=== PATIENT | female | born 1970 | race Hispanic/Latino ===

== ENCOUNTER 2017-11-12 09:40 | Emergency (ER) | payer BC ==
--- OUTSIDE RECORDS SUMMARY | 2017-11-12 09:43 | XMS REPORT ---
:1970 Author Organization eClinicalWorks Care Team Providers Name Role Phone Angel Kumar Provider Role Unavailable Allergies, Adverse Reactions, Alerts Substance Reaction Event Type N.K.D.A. Info Not Available Non Drug Allergy Problems Problem Type Condition Code Onset Dates Condition Status Problem Acute pain of right knee M25.561 Active Problem Sciatica of right side M54.31 Active Assessment Effusion, right knee M25.461 Active Assessment Acute pain of right knee M25.561 Active Assessment Sciatica of right side M54.31 Active Medications Medication Code Code Instructions Start End Status Dosage System Date Date Pseudoeph-Bromp [facility] 04875455629 30-2-10 MG/5ML Active TK 5 ML PO hen-DM Oral Q 4 TO 6 H PRN Lisinopril [facility] 72789414823 20 MG Oral Active TK 1 T PO QD PredniSONE ND 12659099440 20 MG Oral Active TK 1 T PO BID FOR 3 DAYS THEN TK 1 T PO D Azithromycin ND 13627463014 250 MG Oral Active not defined Tramadol HCl ND 73320980787 50 MG Orally November 01October Inactive 1 tablet every 6 hrs 2017 17, as needed 2017 Tylenol # 3 NDC 0 300/30mg PO 4-6 November 01, Dec 01, Active one tab HRS PRN PAIN 2017 2017 Meloxicam ND 96469405117 15 MG Oral Active TK 1 T PO QD Indomethacin ER ND 03136263979 75 MG Oral Active TK ONE C PO QD FOR 2 WEEKS PRN P Results No Known Results Summary Purpose eClinicalWorks Submission
--- OUTSIDE RECORDS SUMMARY | 2017-11-12 09:43 | XMS REPORT ---
:1970 Author Organization eClinicalWorks Care Team Providers Name Role Phone Angel Kumar Provider Role Unavailable Allergies No Known Allergies Problems Problem Type Condition Code Onset Dates Condition Status Problem Acute pain of right knee M25.561 Active Problem Sciatica of right side M54.31 Active Medications No Known Medications Results No Known Results Summary Purpose eClinicalWorks Submission
[2017-11-12] MEDS ORDERED: KETOROLAC 30 MG/ML INJ ONE (10:52)
[2017-11-12] MEDS ORDERED: CYCLOBENZAPRINE 10 MG TAB ONE (10:52)
[2017-11-12 11:02] LABS: Urine Blood NEGATIVE (NEG); Urine Glucose NEGATIVE (NEG); Urine Protein NEGATIVE (NEG); Urine Specific Gravity 1.025 (1.005-1.030); Urine pH 6.5 (5.0-7.0)
--- NOTE | 2017-11-12 11:57 | ER ---
Nurse's Notes [facility] Name: Rachelle Rice Age: 47 yrs Sex: Female : 1970 Arrival Date: 11/12/2017 Time: 09:42 Bed 14 Private MD: Nolberto Alvarado Diagnosis: Low back pain Presentation: 11/12 09:51 Presenting complaint: Patient states: Left lower back pain that started yesterday. aj Patient reports pain shoots down left leg. Transition of care: patient was not received from another setting of care. Onset of symptoms was November 11, 2017. Risk Assessment: Do you want to hurt yourself or someone else? Patient reports no desire to harm self or others. Initial Sepsis Screen: Does the patient meet any 2 criteria? No. Patient's initial sepsis screen is negative. Does the patient have a suspected source of infection? No. Patient's initial sepsis screen is negative. Care prior to arrival: None. 09:51 Method Of Arrival: Ambulatory 09:51 Acuity: BENEDICTO 4 aj Triage Assessment: 09:52 General: Appears in no apparent distress. comfortable, Behavior is calm, cooperative, aj appropriate for age. Pain: Complains of pain in coccyx, left lower back, left gluteus paola and left gluteal fold. Neuro: Level of Consciousness is awake, alert, obeys commands, Oriented to person, place, time, situation, Appropriate for age. Respiratory: Airway is patent Respiratory effort is even, unlabored, Respiratory pattern is regular, symmetrical. : No signs and/or symptoms were reported regarding the genitourinary system. Derm: Skin is intact, is healthy with good turgor, Skin is pink, warm \T\ dry. normal. Musculoskeletal: Circulation, motion, and sensation intact. 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 - Social history:: Smoking status: Patient/guardian denies using tobacco. - Ebola Screening: : Patient negative for fever greater than or equal to 101.5 degrees Fahrenheit, and additional compatible Ebola Virus Disease symptoms Patient denies exposure to infectious person Patient denies travel to an Ebola-affected area in the 21 days before illness onset No symptoms or risks identified at this time. Screenin:56 Abuse screen: Denies threats or abuse. Nutritional screening: No deficits noted. rb1 Tuberculosis screening: No symptoms or risk factors identified. Fall Risk None identified. Assessment: 09:56 General: Appears uncomfortable, obese, Behavior is calm, cooperative. Pain: Complains rb1 of pain in left lower back Pain radiates to left leg Pain currently is 10 out of 10 on a pain scale. Neuro: Level of Consciousness is awake, alert, obeys commands, Oriented to person, place, time, situation. Cardiovascular: Capillary refill < 3 seconds is brisk in bilateral toes. Respiratory: Airway is patent Respiratory effort is even, unlabored, Respiratory pattern is regular, symmetrical. GI: No signs and/or symptoms were reported involving the gastrointestinal system. : No signs and/or symptoms were reported regarding the genitourinary system. Derm: Skin is pink, warm \T\ dry. Musculoskeletal: Range of motion: intact in all extremities. 10:56 Reassessment: Patient appears in no apparent distress at this time. No changes from rb1 previously documented assessment. Family at bedside. 11:53 Reassessment: Patient appears in no apparent distress at this time. Patient and/or rb1 family updated on plan of care and expected duration. Pain level reassessed. Patient is alert, oriented x 3, equal unlabored respirations, skin warm/dry/pink. Family at bedside. Vital Signs: 09:52 BP 124 / 83; Pulse 80; Resp 20; Temp 97.3; Pulse Ox 96% on R/A; Weight 107.95 kg; aj Height 5 ft. 3 in. (160.02 cm); 10:52 BP 105 / 44; Pulse 71; Resp 19; Pulse Ox 96% on R/A; rb1 11:50 BP 113 / 63; Pulse 69; Resp 19; Pulse Ox 97% on R/A; Pain 6/10; rb1 09:52 Body Mass Index 42.16 (107.95 kg, 160.02 cm) aj ED Course: 09:42 Patient arrived in ED. as 09:42 Nolberto Alvarado MD is Private Physician. as 09:52 Triage completed. aj 09:52 Arm band placed on right wrist. Patient placed in an exam room. aj 09:54 Maria Luz Lopez, RN is Primary Nurse. rb1 09:56 Patient has correct armband on for positive identification. Placed in gown. Bed in low rb1 position. Call light in reach. Side rails up X 1. Pulse ox on. NIBP on. 10:02 Farideh Green NP is PHCP. rh1 10:03 Bong Moeller MD is Attending Physician. rh1 11:56 Nolberto Alvarado MD is Referral Physician. rh1 12:07 No provider procedures requiring assistance completed. Patient did not have IV access rb1 during this emergency room visit. Administered Medications: 10:40 Drug: Ketorolac 60 mg Route: IM; Site: left gluteus; rb1 11:10 Follow up: Response: No adverse reaction; Pain is decreased rb1 10:40 Drug: Flexeril 10 mg Route: PO; rb1 11:10 Follow up: Response: No adverse reaction; Pain is decreased rb1 Outcome: 11:56 Discharge ordered by MD. rh1 12:07 Patient left the ED. rb1 12:07 Discharged to home ambulatory, with family. rb1 12:07 Condition: stable 12:07 Discharge instructions given to patient, Instructed on discharge instructions, follow up and referral plans. medication usage, Demonstrated understanding of instructions, follow-up care, medications, Prescriptions given X 1. Signatures: Libia Acosta, RN RN Kari Gillespie as Farideh Green, [employer] rh1 Maria Luz Lopez, RN RN [facility]
--- NOTE | 2017-11-12 11:57 | EDPHYS ---
Physician Documentation [facility] Name: Rachelle Rice Age: 47 yrs Sex: Female : 1970 Arrival Date: 11/12/2017 Time: 09:42 Bed 14 Private MD: Nolberto Alvarado ED Physician Bong Moeller HPI: 11/12 10:04 This 47 yrs old Female presents to ER via Ambulatory with complaints of Back rh1 Pain. 10:04 The patient presents with pain that is acute, with no known mechanism of injury, and rh1 decreased range of motion, and spasm, stiffness, tightness. The symptoms are located in the low back. Onset: The symptoms/episode began/occurred yesterday. The pain radiates to the left leg and buttocks and left gluteus paola. Associated signs and symptoms: Pertinent negatives: abdominal pain, dysuria, fever, hematuria, incontinence, nausea, numbness, tingling, urinary retention, vomiting, weakness. The problem was sustained from unknown cause. Modifying factors: The patient symptoms are alleviated by specific position, standing, the patient symptoms are aggravated by movement. Severity of symptoms: At their worst the symptoms were moderate, in the emergency department the symptoms are unchanged. The patient has not experienced similar symptoms in the past. The patient has not recently seen a physician. PT. began with left lower back pain yesterday, while doing dishes. Her pain is improved with standing, and worse with movement, laying, sitting. Denies any trauma. No fever/chills, saddle/lower extremity paresthesias, weakness, N/V, abdominal pain, urinary symptoms.. [employer]OTE[employer] SPECIALIST: 09:52 LMP N/A - Post-menopause aj Historical: - Allergies: 09:52 No Known Allergies; aj - Home Meds: 09:52 Lisinopril Oral [Active]; aj - PMHx: 09:52 Hypertension; aj - PSHx: 09:52 Cholecystectomy; aj - Immunization history:: Adult Immunizations up to date. - Social history:: Smoking status: Patient/guardian denies using tobacco. - Ebola Screening: : Patient negative for fever greater than or equal to 101.5 degrees Fahrenheit, and additional compatible Ebola Virus Disease symptoms Patient denies exposure to infectious person Patient denies travel to an Ebola-affected area in the 21 days before illness onset No symptoms or risks identified at this time. ROS: 10:04 Constitutional: Negative for fever, chills, and weight loss. rh1 10:04 Abdomen/GI: Negative for abdominal pain, nausea, vomiting, and diarrhea. 10:04 Back: Positive for decreased range of motion, pain with movement. 10:04 : Negative for urinary symptoms, small amounts, burning with urination. 10:04 MS/extremity: Positive for pain, Negative for decreased range of motion, paresthesias, swelling, tenderness. 10:04 Neuro: Negative for numbness, tingling, weakness. 10:04 All other systems are negative. Exam: 10:04 Constitutional: This is a well developed, well nourished patient who is awake, alert, rh1 and in no acute distress. Head/Face: Normocephalic, atraumatic. Neck: Trachea midline, and no cervical lymphadenopathy. Supple, full range of motion without nuchal rigidity. No Meningismus. Chest/axilla: Normal chest wall appearance and motion. Nontender with no deformity. No lesions are appreciated. Cardiovascular: Regular rate and rhythm with a normal S1 and S2. No gallops, murmurs, or rubs. No JVD. No pulse deficits. Respiratory: Lungs have equal breath sounds bilaterally, clear to auscultation. No rales, rhonchi or wheezes noted. No increased work of breathing. Abdomen/GI: Soft, non-tender, with normal bowel sounds. No distension. No guarding or rebound. No evidence of tenderness throughout. 10:04 MS/ Extremity: Pulses equal, no cyanosis. Neurovascular intact. Full, normal range of motion. 10:04 Skin: Warm, dry with normal turgor. Normal color with no rashes, no lesions, and no evidence of cellulitis. 10:04 Abdomen/GI: Inspection: bruising, is not seen. 10:04 Back: Exam negative for decreased ROM, pain, that is moderate, of the left low back and left mid back, ROM is painful, with flexion, with extension, CVA tenderness, is absent, vertebral tenderness, is not appreciated, muscle spasm, is appreciated in the left low back, Straight leg raises: right lower extremity does not illicit pain, left lower extremity illicits pain. 10:04 Neuro: Orientation: is normal, to person, place \T\ time. Mentation: is normal, lucid, able to follow commands, Motor: is normal, moves all fours, strength is 5/5 in all extremities, dorsi/plantar flexion 5/5 bilaterally, Sensation: is normal, no obvious gross deficits, numbness, is not appreciated, tingling, is not appreciated, Gait: is steady, at a normal pace, without difficulty, Deep tendon reflexes are 2+ (normal) in the right patellar, right Achilles, left patellar and left Achilles. Vital Signs: 09:52 BP 124 / 83; Pulse 80; Resp 20; Temp 97.3; Pulse Ox 96% on R/A; Weight 107.95 kg; aj Height 5 ft. 3 in. (160.02 cm); 10:52 BP 105 / 44; Pulse 71; Resp 19; Pulse Ox 96% on R/A; rb1 11:50 BP 113 / 63; Pulse 69; Resp 19; Pulse Ox 97% on R/A; Pain 6/10; rb1 09:52 Body Mass Index 42.16 (107.95 kg, 160.02 cm) aj MDM: 10:04 Patient medically screened. rh1 11:55 Data reviewed: vital signs, nurses notes, lab test result(s), and as a result, I will 1 discharge patient. Data interpreted: Pulse oximetry: on room air is 96 %. Interpretation: normal. Counseling: I had a detailed discussion with the patient and/or guardian regarding: the historical points, exam findings, and any diagnostic results supporting the discharge/admit diagnosis, lab results, the need for outpatient follow up, a family practitioner, to return to the emergency department if symptoms worsen or persist or if there are any questions or concerns that arise at home. Response to treatment: the patient's symptoms have markedly improved after treatment, and as a result, I will discharge patient. 11/12 10:50 Order name: Urine Dipstick--Ancillary (enter results); Complete Time: : eb 11/12 10:50 Order name: Urine --Ancillary (enter results); Complete Time: : eb 11/12 10:29 Order name: Urine Dipstick-Ancillary (obtain specimen); Complete Time: 11:03 rh1 11/12 10:29 Order name: Urine Test (obtain specimen); Complete Time: 11:03 rh1 Administered Medications: 10:40 Drug: Ketorolac 60 mg Route: IM; Site: left gluteus; rb1 11:10 Follow up: Response: No adverse reaction; Pain is decreased rb1 10:40 Drug: Flexeril 10 mg Route: PO; rb1 11:10 Follow up: Response: No adverse reaction; Pain is decreased rb1 Disposition: 15:57 Co-signature as Attending Physician, Bong Moeller MD I agree with the assessment and kdr plan of care. Disposition: 11/12/17 11:56 Discharged to Home. Impression: Low back pain. - Condition is Stable. - Discharge Instructions: Back Pain, Adult, Sciatica. - Prescriptions for Cyclobenzaprine 10 mg Oral Tablet - take 1 tablet by ORAL route every 8 hours As needed; 30 tablet. - Medication Reconciliation Form, Thank You Letter, Antibiotic Education, Prescription Opioid Use form. - Follow up: Nolberto Alvarado MD; When: 1 - 2 days; Reason: Recheck today's complaints, Continuance of care, Re-evaluation by your physician. Follow up: Emergency Department; When: As needed; Reason: Fever > 102 F, If symptoms return, Trouble breathing, Worsening of condition. - Problem is new. - Symptoms have improved. Signatures: Dispatcher [employer] EDMS Libia Acosta RN RN aj Rittger, Kevin, MD MD [facility] Farideh Green NP RETRIMMER rh1 Maria Luz Lopez, RN RN rb1 Corrections: (The following items were deleted from the chart) 12:07 11:56 11/12/2017 11:56 Discharged to Home. Impression: Low back pain. Condition is rb1 Stable. Forms are Medication Reconciliation Form, Thank You Letter, Antibiotic Education, Prescription Opioid Use. Follow up: Nolberto Alvarado; When: 1 - 2 days; Reason: Recheck today's complaints, Continuance of care, Re-evaluation by your physician. Follow up: Emergency Department; When: As needed; Reason: Fever > 102 F, If symptoms return, Trouble breathing, Worsening of condition. Problem is new. Symptoms have improved. rh1
== END 2017-11-12 12:07 | disposition home or self-care (01) ==
LOC: ER 09:40
DX: M54.5 Low back pain (principal); I10 Essential (primary) hypertension
CPT/HCPCS: 81003; 81025; 96372; 99283

== ENCOUNTER 2018-05-14 14:17 | Emergency (ER) | payer BC ==
--- OUTSIDE RECORDS SUMMARY | 2018-05-14 14:19 | XMS REPORT ---
[...] End Status Dosage System Date Date Pseudoeph-Bromp [facility] 80874073932 30-2-10 MG/5ML Active TK 5 ML PO hen-DM Oral Q 4 TO 6 H PRN Lisinopril [facility] 23636046586 20 MG Oral Active TK 1 T PO QD PredniSONE ND 55627135359 20 MG Oral Active TK 1 T PO BID FOR 3 DAYS THEN TK 1 T PO D Azithromycin ND 77544736270 250 MG Oral Active not defined Tramadol HCl ND 18387427610 50 MG Orally November 01October Inactive 1 tablet every 6 hrs 2017 17, as needed 2017 Tylenol # 3 NDC 0 300/30mg PO 4-6 November 01, Dec 01, Active one tab HRS PRN PAIN 2017 2017 Meloxicam ND 61612867389 15 MG Oral Active TK 1 T PO QD Indomethacin ER ND 15369214075 75 MG Oral Active TK ONE C PO QD FOR 2 WEEKS PRN P Results No Known Results Summary Purpose eClinicalWorks Submission
--- OUTSIDE RECORDS SUMMARY | 2018-05-14 14:20 | XMS REPORT ---
:1970 Author Organization eClinicalWorks Care Team Providers Name Role Phone Angel Kumar Provider Role Unavailable Allergies, Adverse Reactions, Alerts Substance Reaction Event Type N.K.D.A. Info Not Available Non Drug Allergy Problems Problem Type Condition Code Onset Dates Condition Status Assessment Right sided sciatica M54.31 Active Assessment Pain in right knee M25.561 Active Assessment Other chronic pain G89.29 Active Assessment Effusion of right knee M25.461 Active Problem Other chronic pain G89.29 Active Problem Effusion of right knee M25.461 Active Problem Pain in right knee M25.561 Active Problem Sciatica of right side M54.31 Active Problem Right sided sciatica M54.31 Active Problem Acute pain of right knee M25.561 Active Medications Medication Code Code Instructions Start End Status Dosage System Date Date Pseudoeph-Bromph [facility] 86134634656 30-2-10 MG/5ML Active TK 5 ML PO en-DM Oral Q 4 TO 6 H PRN Azithromycin [facility] 94788390732 250 MG Oral Active not defined PredniSONE [facility] 74354879639 20 MG Oral Active TK 1 T PO BID FOR 3 DAYS THEN TK 1 T PO D Indomethacin ER [facility] 75485492686 75 MG Oral Active TK ONE C PO QD FOR 2 WEEKS PRN P Lisinopril [facility] 28796665397 20 MG Oral Active TK 1 T PO QD Meloxicam [facility] 71538570862 15 MG Oral Active TK 1 T PO QD Results No Known Results Summary Purpose eClinicalWorks Submission
--- OUTSIDE RECORDS SUMMARY | 2018-05-14 14:20 | XMS REPORT ---
:1970 Author Organization eClinicalWorks Care Team Providers Name Role Phone Angel Kumar Provider Role Unavailable Allergies, Adverse Reactions, Alerts Substance Reaction Event Type N.K.D.A. Info Not Available Non Drug Allergy Problems Problem Type Condition Code Onset Dates Condition Status Assessment Other chronic pain G89.29 Active Assessment Effusion of right knee M25.461 Active Assessment Pain in right knee M25.561 Active Assessment Right sided sciatica M54.31 Active Problem Other chronic pain G89.29 Active Problem Effusion of right knee M25.461 Active Problem Pain in right knee M25.561 Active Problem Sciatica of right side M54.31 Active Problem Right sided sciatica M54.31 Active Problem Acute pain of right knee M25.561 Active Medications Medication Code Code Instructions Start End Status Dosage System Date Date Meloxicam [facility] 35858389286 15 MG Oral Active TK 1 T PO QD PredniSONE [facility] 08624708509 20 MG Oral Active TK 1 T PO BID FOR 3 DAYS THEN TK 1 T PO D Pseudoeph-Bromph [facility] 96611122060 30-2-10 MG/5ML Active TK 5 ML PO en-DM Oral Q 4 TO 6 H PRN Lisinopril [facility] 15220821514 20 MG Oral Active TK 1 T PO QD Indomethacin ER [facility] 89686001038 75 MG Oral Active TK ONE C PO QD FOR 2 WEEKS PRN P Azithromycin [facility] 92200526388 250 MG Oral Active not defined Results No Known Results Summary Purpose eClinicalWorks Submission
[2018-05-14] MEDS ORDERED: KETOROLAC 30 MG/ML INJ ONE (14:52)
--- NOTE | 2018-05-14 15:21 | RAD REPORT ---
EXAM DESCRIPTION: CT - Stone Protocol - 05/14/2018 3:05 pm CLINICAL HISTORY: Abdominal pain. Left flank pain COMPARISON: 2016 TECHNIQUE: Computed axial tomography of the abdomen pelvis was obtained without oral or IV contrast. Lack of IV and oral contrast limits evaluation of solid organs, bowel, and vessels. Coronal reformat rosibel images were obtained and reviewed. All CT scans are performed using dose optimization technique as appropriate and may include automated exposure control or mA/KV adjustment according to patient size. FINDINGS: A renal calculus is not seen. An ureteral calculus is not noted. A bladder calculus is not present. Fatty liver. Gallbladder has been removed Spleen, pancreas and adrenals appear grossly normal There is no evidence of diverticulitis. An adnexal mass is not noted. Small umbilical hernia contains fat IMPRESSION: Negative for a genitourinary calculus
--- NOTE | 2018-05-14 15:23 | ER ---
Nurse's Notes [facility] Name: Rachelle Rice Age: 47 yrs Sex: Female : 1970 Arrival Date: 05/14/2018 Time: 14:20 Bed 18 Private MD: Nolberto Alvarado Diagnosis: Low back pain Presentation: 05/14 14:24 Presenting complaint: Patient states: I have had problems with sciatica on the left la1 side about year ago but three days ago a similar pain started on the right but it is worse. Transition of care: patient was not received from another setting of care. Onset of symptoms was May 14, 2018. Risk Assessment: Do you want to hurt yourself or someone else? Patient reports no desire to harm self or others. Initial Sepsis Screen: Does the patient meet any 2 criteria? No. Patient's initial sepsis screen is negative. Does the patient have a suspected source of infection? No. Patient's initial sepsis screen is negative. Care prior to arrival: None. 14:24 Method Of Arrival: Ambulatory la1 14:24 Acuity: BENEDICTO 3 la1 Historical: - Allergies: 14:26 No Known Allergies; la1 - Home Meds: 14:26 lisinopril Oral [Active]; gabapentin oral oral [Active]; la1 - PMHx: 14:26 Hypertension; la1 - PSHx: 14:26 None; la1 - Immunization history:: Adult Immunizations up to date. - Social history:: Smoking status: Patient/guardian denies using tobacco. - Ebola Screening: : No symptoms or risks identified at this time. Screenin:36 Abuse screen: Denies threats or abuse. Nutritional screening: No deficits noted. em Tuberculosis screening: No symptoms or risk factors identified. Fall Risk None identified. Assessment: 14:36 General: Appears in no apparent distress. uncomfortable, Behavior is calm, cooperative, em Denies fever. Pain: Complains of pain in right flank Pain currently is 10 out of 10 on a pain scale. Quality of pain is described as sharp, Pain began 2-3 days ago. Neuro: Level of Consciousness is awake, alert, obeys commands, Oriented to person, place, time, situation, Gait is steady, Speech is normal, Intact. Cardiovascular: Patient's skin is warm and dry. Respiratory: Airway is patent Respiratory effort is even, unlabored, Respiratory pattern is regular, symmetrical. GI: Abdomen is obese, Abd is soft and non tender X 4 quads. Patient currently denies abdominal pain, nausea, vomiting. : Urine is clear, Denies burning with urination, discharge, urgency, vaginal bleeding. Derm: Skin is intact, is healthy with good turgor, Skin is pink, warm \T\ dry. Musculoskeletal: Range of motion: intact in all extremities. Injury Description: denies trauma. 14:45 Reassessment: I agree with previous assessment. hb 15:44 Reassessment: Patient appears in no apparent distress at this time. Patient and/or em family updated on plan of care and expected duration. Pain level reassessed. Patient is alert, oriented x 3, equal unlabored respirations, skin warm/dry/pink. rates pain 7/10 Patient states feeling better. Vital Signs: 14:25 BP 124 / 67; Pulse 81; Resp 18; Temp 97.8; Pulse Ox 98% on R/A; Weight 102.06 kg; la1 Height 5 ft. 3 in. (160.02 cm); 14:25 Body Mass Index 39.86 (102.06 kg, 160.02 cm) la1 ED Course: 14:20 Patient arrived in ED. mr 14:20 Nolberto Alvarado MD is Private Physician. mr 14:21 [facility] Crawford [facility]C [facility]. kb 14:21 Philippe Bowman MD is Attending Physician. kb 14:25 Triage completed. la1 14:25 Arm band placed on left wrist. la1 14:36 Patient has correct armband on for positive identification. Bed in low position. Call em light in reach. Pulse ox on. NIBP on. 14:47 Seth Parker LVN is Primary Nurse. em 15:03 CT completed. Patient tolerated procedure well. Patient moved back from CT. bq 15:05 CT Stone Protocol In Process Unspecified. EDMS 15:44 No provider procedures requiring assistance completed. Patient did not have IV access em during this emergency room visit. Administered Medications: 14:47 Drug: TORadol 60 mg Route: IM; Site: right gluteus; em 15:45 Follow up: Response: No adverse reaction; Pain is decreased em Outcome: 15:23 Discharge ordered by . kb 15:44 Discharged to home ambulatory, with family. em 15:44 Condition: good 15:44 Discharge instructions given to patient, family, Instructed on discharge instructions, follow up and referral plans. medication usage, Demonstrated understanding of instructions, follow-up care, medications, Prescriptions given X 2. 15:45 Patient left the ED. em Signatures: Dispatcher [employer] EDPR Shira Crawford, PROFESSIONAL ATHLETE-C PROFESSIONAL ATHLETE-Cecelia Story mr Yi Quinonez Edgar, A P MANAGER A P MANAGER em Derick Mondragon, RN RN la1 Lori Hansen, RN RN hb
--- NOTE | 2018-05-14 15:23 | EDPHYS ---
Physician Documentation [facility] Name: Rachelle Rice Age: 47 yrs Sex: Female : 1970 Arrival Date: 05/14/2018 Time: 14:20 Bed 18 Private MD: Nolberto Alvarado ED Physician Philippe Bowman HPI: 05/14 14:37 This 47 yrs old Female presents to ER via Ambulatory with complaints of Back kb Pain. 14:37 The patient complains of pain in the right flank. The pain does not radiate. Onset: The kb symptoms/episode began/occurred 3 day(s) ago. Modifying factors: The symptoms are alleviated by nothing. the symptoms are aggravated by movement, palpation/percussion. Associated signs and symptoms: The patient has no apparent associated signs or symptoms. Severity of pain: At its worst the pain was moderate in the emergency department the pain is unchanged. The patient has experienced a previous episode. The patient has not recently seen a physician. Historical: - Allergies: 14:26 No Known Allergies; la1 - Home Meds: 14:26 lisinopril Oral [Active]; gabapentin oral oral [Active]; la1 - PMHx: 14:26 Hypertension; la1 - PSHx: 14:26 None; la1 - Immunization history:: Adult Immunizations up to date. - Social history:: Smoking status: Patient/guardian denies using tobacco. - Ebola Screening: : No symptoms or risks identified at this time. ROS: 14:34 Constitutional: Negative for fever, chills, and weight loss, Cardiovascular: Negative kb for chest pain, palpitations, and edema, Respiratory: Negative for shortness of breath, cough, wheezing, and pleuritic chest pain, Abdomen/GI: Negative for abdominal pain, nausea, vomiting, diarrhea, and constipation, : Negative for injury, bleeding, discharge, and swelling, MS/Extremity: Negative for injury and deformity, Skin: Negative for injury, rash, and discoloration, Neuro: Negative for headache, weakness, numbness, tingling, and seizure. 14:34 Back: Positive for pain at rest, pain with movement, Negative for injury or acute deformity, decreased range of motion, radiated pain. Exam: 14:35 Constitutional: This is a well developed, well nourished patient who is awake, alert, kb and in no acute distress. Head/Face: Normocephalic, atraumatic. Chest/axilla: Normal chest wall appearance and motion. Nontender with no deformity. No lesions are appreciated. Cardiovascular: Regular rate and rhythm with a normal S1 and S2. No gallops, murmurs, or rubs. Normal PMI, no JVD. No pulse deficits. Respiratory: Lungs have equal breath sounds bilaterally, clear to auscultation and percussion. No rales, rhonchi or wheezes noted. No increased work of breathing, no retractions or nasal flaring. Abdomen/GI: Soft, non-tender, with normal bowel sounds. No distension or tympany. No guarding or rebound. No evidence of tenderness throughout. Skin: Warm, dry with normal turgor. Normal color with no rashes, no lesions, and no evidence of cellulitis. MS/ Extremity: Pulses equal, no cyanosis. Neurovascular intact. Full, normal range of motion. Neuro: Awake and alert, GCS 15, oriented to person, place, time, and situation. Cranial nerves II-XII grossly intact. Motor strength 5/5 in all extremities. Sensory grossly intact. Cerebellar exam normal. Normal gait. 14:35 Back: pain, that is moderate, CVA tenderness, that is moderate, is noted on the right. Vital Signs: 14:25 BP 124 / 67; Pulse 81; Resp 18; Temp 97.8; Pulse Ox 98% on R/A; Weight 102.06 kg; la1 Height 5 ft. 3 in. (160.02 cm); 14:25 Body Mass Index 39.86 (102.06 kg, 160.02 cm) la1 MDM: 14:26 Patient medically screened. kb 14:34 Data reviewed: vital signs, nurses notes. Data interpreted: Pulse oximetry: on room air kb is 98 %. Interpretation: normal. 15:18 Counseling: I had a detailed discussion with the patient and/or guardian regarding: the kb historical points, exam findings, and any diagnostic results supporting the discharge/admit diagnosis, lab results, radiology results, the need for outpatient follow up, a family practitioner, to return to the emergency department if symptoms worsen or persist or if there are any questions or concerns that arise at home. 05/14 14:57 Order name: Urine Dipstick--Ancillary (enter results) ms 01/27 14:57 Order name: Urine --Ancillary (enter results) ms 05/14 14:33 Order name: Urine Dipstick-Ancillary (obtain specimen); Complete Time: 14:47 kb 05/14 14:41 Order name: CT Stone Protocol; Complete Time: 15:22 kb Administered Medications: 14:47 Drug: TORadol 60 mg Route: IM; Site: right gluteus; em 15:45 Follow up: Response: No adverse reaction; Pain is decreased em Disposition: 17:41 Co-signature as Attending Physician, Philippe Bowman MD. rn Disposition: 05/14/18 15:23 Discharged to Home. Impression: Low back pain. - Condition is Stable. - Discharge Instructions: Musculoskeletal Pain, Back Pain, Adult, [id number], Back Exercises, [id number]. - Prescriptions for Cyclobenzaprine 10 mg Oral Tablet - take 1 tablet by ORAL route every 8 hours As needed; 21 tablet. Diclofenac Sodium 75 mg Oral Tablet, Delayed Release (E.C.) - take 1 tablet by ORAL route 2 times per day As needed; 30 tablet. - Medication Reconciliation Form, Thank You Letter, Antibiotic Education, Prescription Opioid Use form. - Follow up: Emergency Department; When: As needed; Reason: Worsening of condition. Follow up: Private Physician; When: 2 - 3 days; Reason: Recheck today's complaints, Continuance of care, Re-evaluation by your physician. Signatures: Dispatcher [employer] EDShira Grayson, HOME MANAGER-C HOME MANAGER-Ckb Seth Parker, JUVENILE COURT LIAISON JUVENILE [address] LIAISON em Philippe Bowman MD MD rn Attema, Lee, RN RN la1 Corrections: (The following items were deleted from the chart) 15:45 15:23 05/14/2018 15:23 Discharged to Home. Impression: Low back pain. Condition is em Stable. Forms are Medication Reconciliation Form, Thank You Letter, Antibiotic Education, Prescription Opioid Use. Follow up: Emergency Department; When: As needed; Reason: Worsening of condition. Follow up: Private Physician; When: 2 - 3 days; Reason: Recheck today's complaints, Continuance of care, Re-evaluation by your physician. kb
[2018-05-14 17:47] LABS: Urine Blood NEGATIVE (NEG); Urine Glucose NEGATIVE (NEG); Urine Protein NEGATIVE (NEG)
== END 2018-05-14 15:45 | disposition home or self-care (01) ==
LOC: ER 14:17
DX: M54.5 Low back pain (principal); I10 Essential (primary) hypertension
CPT/HCPCS: 74176; 76377; 81003; 81025; 96372; 99284

== ENCOUNTER 2021-03-30 18:21 | Emergency (ER) | payer BC, SELFPAY ==
--- OUTSIDE RECORDS SUMMARY | 2021-03-30 18:24 | XMS REPORT | Continuity of Care Document ---
:1970 Author Organization [facility] t Address [address] [place] [address] Care Team Providers Name Role Phone Unavailable Unavailable Unavailable Problems Condition Condition Condition Status Onset Resolution Last Treating Co mments Source Name Details Category Date Date Treatment Clinician Date Acute pain Acute pain Problem Active [facility] Right Right Problem Active [facility] Other Problem Active [facility] chronic [facility] Effusion Effusion Problem Active [facility] Allergies, Adverse Reactions, Alerts This patient has no known allergies or adverse reactions. Medications Ordered Filled Start Stop Current Ordering Indication Dosage Frequency Signature Comments Components Source Medication Medication Date Date Medication? Clinician (SIG) Name Name Pseudoeph-B Pseudoeph-B Yes Angel DIA [address] [facility] romphen-DM romphen-DM Kumar Q 4 TO 6 H [facility] Lisinopril Lisinopril Yes Angel TK [address] [facility] Kumar QD [facility] PredniSONE PredniSONE Yes Angel TK [address] [facility] Kumar BID FOR 3 [facility] - DAYS THEN Memoria TK 1 T PO l D Outpat[facility] ent Clinics Azithromyci Azithromyci Yes Angel not [facility] n Kumar defined [facility] Meloxicam Meloxicam Yes Angel TK [address] [facility] Kumar QD [facility] Indomethaci Indomethaci Yes Angel DIA ONE C [facility] ER n ER Kumar PO QD FOR [facility] 2 WEEKS [facility] Procedures This patient has no known procedures. Encounters Start End Encounter Admission Attending Care Care Encounter Source Date/Time Date/Time Type Type Clinicians Facility Department ID 2017-12-27 2017-12-27 Outpatient Jaden Franco [id number] [facility] 14[facility] 14[facility] 2017-12-12 2017-12-12 Outpatient Jaden Franco [id number] [facility] 13:30:00 13:30[facility]00 t [facility] Clinics 2017-11-01 2017-11-01 Outpatient Jaden Franco [id number] [facility] 17:02:00 17:02:00 t [facility] 2017-11-01 2017-11-01 Outpatient Jaden Franco [id number] [facility] 08[facility]30:00 08:30:00 t [facility] Results This patient has no known results.
[2021-03-30] MEDS ORDERED: SMZ./TMP. 800/160 MG TABLET ONE (19:46)
[2021-03-30] MEDS ORDERED: DOXYCYCLINE 100 MG CAP PO ONE (19:46)
[2021-03-30 20:03] LABS: Urine Blood Negative (Negative); Urine Glucose Negative (Negative); Urine Protein Negative (Negative); Urine Specific Gravity 1.025 (1.005-1.030)
[2021-03-30 20:07] LABS: Urine Specific Gravity/Preg 1.025 (1.005-1.030)
[2021-03-30] MEDS ORDERED: LIDOCAINE 1% W/EPI 1:100,000 MDV 20 ML VIAL ONE (20:30)
[2021-03-30] MEDS ORDERED: HYDROCODONE/APAP 7.5/325 MG TAB ONE (20:48)
--- NOTE | 2021-03-30 20:49 | ER ---
Nurse's Notes [facility] Name: Rachelle Rice Age: 50 yrs Sex: Female : 1970 Arrival Date: 03/30/2021 Time: 18:25 Bed 11 Private MD: Diagnosis: Cutaneous abscess of abdominal wall;Obesity, unspecified Presentation: 03/30 19:11 Chief complaint: Patient states: Patient c/o of cyst right leg fold X 2 days . draining da3 blood and clear liquid. Coronavirus screen: Vaccine status: Patient reports receiving the 2nd dose of the covid vaccine. Ebola Screen: No symptoms or risks identified at this time. Initial Sepsis Screen: Does the patient meet any 2 criteria? No. Patient's initial sepsis screen is negative. Does the patient have a suspected source of infection? No. Patient's initial sepsis screen is negative. Risk Assessment: Do you want to hurt yourself or someone else? Patient reports no desire to harm self or others. Onset of symptoms was March 29, 2021. 19:11 Method Of Arrival: Ambulatory da3 19:11 Acuity: BENEDICTO 3 da3 Triage Assessment: 19:11 General: Appears in no apparent distress. comfortable, Behavior is calm, cooperative. da3 Pain: Pain currently is 9 out of 10 on a pain scale. GI: No deficits noted. 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 - Social history:: Smoking status: Patient reports the use of cigarette tobacco products, Patient denies any tobacco usage or history of. - Family history:: not pertinent. Screenin:30 Abuse screen: Denies threats or abuse. Denies injuries from another. Nutritional ld1 screening: No deficits noted. Tuberculosis screening: No symptoms or risk factors identified. Fall Risk None identified. Assessment: 19:28 General: Appears in no apparent distress. uncomfortable, Behavior is calm, cooperative, ld1 appropriate for age. Pain: Complains of pain in right femoral area Pain does not radiate. Pain currently is 7 out of 10 on a pain scale. Quality of pain is described as throbbing, Pain began suddenly, Is continuous. Neuro: Level of Consciousness is awake, alert, obeys commands, Oriented to person, place, time, situation, Appropriate for age. Cardiovascular: Capillary refill < 3 seconds Patient's skin is warm and dry. Respiratory: Airway is patent Respiratory effort is even, unlabored, Respiratory pattern is regular, symmetrical. GI: Abdomen is round non-distended, obese, Bowel sounds present X 4 quads. Abd is soft Abd is non tender. : No signs and/or symptoms were reported regarding the genitourinary system. EENT: No signs and/or symptoms were reported regarding the EENT system. Derm: No signs and/or symptoms reported regarding the dermatologic system. Musculoskeletal: No signs and/or symptoms reported regarding the musculoskeletal system. Vital Signs: 19:11 BP 135 / 91; Pulse 85; Resp 20; Temp 98.7; Pulse Ox 97% on R/A; Height 5 ft. 3 in. da3 (160.02 cm); 19:30 BP 139 / 88; Pulse 88; Resp 18; Temp 97.8(O); Pulse Ox 98% on R/A; Pain 7/10; ld1 ED Course: 18:25 Patient arrived in ED. ds1 19:11 Arm band placed on left wrist. da3 19:15 Triage completed. da3 19:20 Ken Torres MD is Attending Physician. adria 19:28 Annie Davila, JAYRO is Primary Nurse. ld1 19:30 Patient has correct armband on for positive identification. Placed in gown. Bed in low ld1 position. Call light in reach. Side rails up X2. Pulse ox on. NIBP on. Door closed. Noise minimized. Warm blanket given. 19:30 No provider procedures requiring assistance completed. ld1 20:47 Luke Suazo MD is Referral Physician. adria 20:53 Patient did not have IV access during this emergency room visit. ld1 Administered Medications: 20:03 Drug: Bactrim (trimethoprim-sulfamethoxazole) (160 mg-800 mg (DS) 1 tablet Route: PO; ld1 20:49 Follow up: Response: No adverse reaction ld1 20:03 Drug: Doxycycline 100 mg Route: PO; ld1 20:48 Follow up: Response: No adverse reaction ld1 20:22 Drug: Lidocaine-Epinephrine -1%: (1:100,000) 10 ml {Note: by Ken Torres MD.} ld1 Volume: 20 ml; Route: Infiltration; 20:48 Drug: [place] (HYDROcodone-acetaminophen) 10 mg-325 mg 1 tabs Route: PO; ld1 Outcome: 20:48 Discharge ordered by . adria 20:53 Discharged to home ambulatory. ld1 20:53 Condition: stable 20:53 Discharge instructions given to patient, Instructed on discharge instructions, follow up and referral plans. medication usage, Demonstrated understanding of instructions, follow-up care, medications, Prescriptions given X 4. 20:54 Patient left the ED. ld1 Signatures: Ken Torres MD MD cha Sanford, Demi ds1 Annie Davila, JAYRO RN ld1 Gilberto Huynh RN RN da3 Corrections: (The following items were deleted from the chart) 20:54 20:53 Patient did not have IV access during this emergency room visit. intact, bleeding ld1 controlled, No redness/swelling at site. ld1
--- NOTE | 2021-03-30 20:49 | EDPHYS ---
Physician Documentation [facility] Name: Rachelle Rice Age: 50 yrs Sex: Female : 1970 Arrival Date: 03/30/2021 Time: 18:25 Bed 11 Private MD: ED Physician Ken Torres HPI: 03/30 20:10 This 50 yrs old Female presents to ER via Ambulatory with complaints of adria Abdominal Pain. 20:10 The patient presents with an abscess of the right lower quadrant, The patient presents adria with cellulitis of the , the patient presents with a swollen area of the right lower quadrant. Description: The affected area is moderate sized, irregular, draining, erythematous, fluctuant. Onset: The symptoms/episode began/occurred 3 day(s) ago. Possible cause(s): unknown. Associated signs and symptoms: Pertinent positives: drainage, swelling. Modifying factors: the symptoms are alleviated by remaining still, the symptoms are aggravated by pressure, squeezing the lesion and expressing the contents, touching. Severity of symptoms: At their worst the symptoms were moderate, in the emergency department the symptoms are unchanged. The patient has not experienced similar symptoms in the past. 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 - Social history:: Smoking status: Patient reports the use of cigarette tobacco products, Patient denies any tobacco usage or history of. - Family history:: not pertinent. ROS: 20:10 Constitutional: Negative for fever, chills, and weight loss, Eyes: Negative for injury, adria pain, redness, and discharge, ENT: Negative for injury, pain, and discharge, Neck: Negative for injury, pain, and swelling, Cardiovascular: Negative for chest pain, palpitations, and edema, Respiratory: Negative for shortness of breath, cough, wheezing, and pleuritic chest pain, Abdomen/GI: Negative for abdominal pain, nausea, vomiting, diarrhea, and constipation, Back: Negative for injury and pain, : Negative for injury, bleeding, discharge, and swelling, MS/Extremity: Negative for injury and deformity, Neuro: Negative for headache, weakness, numbness, tingling, and seizure, Psych: Negative for depression, anxiety, suicide ideation, homicidal ideation, and hallucinations, Allergy/Immunology: Negative for hives, rash, and allergies, Endocrine: Negative for neck swelling, polydipsia, polyuria, polyphagia, and marked weight changes, Hematologic/Lymphatic: Negative for swollen nodes, abnormal bleeding, and unusual bruising. 20:10 Skin: Positive for abscess, cellulitis, of the right lower quadrant. Exam: 20:10 Constitutional: This is a well developed, well nourished patient who is awake, alert, adria and in no acute distress. Head/Face: Normocephalic, atraumatic. Eyes: Pupils equal round and reactive to light, extra-ocular motions intact. Lids and lashes normal. Conjunctiva and sclera are non-icteric and not injected. Cornea within normal limits. Periorbital areas with no swelling, redness, or edema. ENT: Nares patent. No nasal discharge, no septal abnormalities noted. Tympanic membranes are normal and external auditory canals are clear. Oropharynx with no redness, swelling, or masses, exudates, or evidence of obstruction, uvula midline. Mucous membranes moist. Neck: Trachea midline, no thyromegaly or masses palpated, and no cervical lymphadenopathy. Supple, full range of motion without nuchal rigidity, or vertebral point tenderness. No Meningismus. Chest/axilla: Normal chest wall appearance and motion. Nontender with no deformity. No lesions are appreciated. Cardiovascular: Regular rate and rhythm with a normal S1 and S2. No gallops, murmurs, or rubs. Normal PMI, no JVD. No pulse deficits. Respiratory: Lungs have equal breath sounds bilaterally, clear to auscultation and percussion. No rales, rhonchi or wheezes noted. No increased work of breathing, no retractions or nasal flaring. Back: No spinal tenderness. No costovertebral tenderness. Full range of motion. Skin: Warm, dry with normal turgor. Normal color with no rashes, no lesions, and no evidence of cellulitis. MS/ Extremity: Pulses equal, no cyanosis. Neurovascular intact. Full, normal range of motion. Neuro: Awake and alert, GCS 15, oriented to person, place, time, and situation. Cranial nerves II-XII grossly intact. Motor strength 5/5 in all extremities. Sensory grossly intact. Cerebellar exam normal. Normal gait. Psych: Awake, alert, with orientation to person, place and time. Behavior, mood, and affect are within normal limits. 20:10 Abdomen/GI: Inspection: abdomen appears normal, Bowel sounds: normal, Palpation: moderate abdominal tenderness, in the right lower quadrant, Liver: no appreciated palpable abnormalities, Hernia: not appreciated. Vital Signs: 19:11 BP 135 / 91; Pulse 85; Resp 20; Temp 98.7; Pulse Ox 97% on R/A; Height 5 ft. 3 in. da3 (160.02 cm); 19:30 BP 139 / 88; Pulse 88; Resp 18; Temp 97.8(O); Pulse Ox 98% on R/A; Pain 7/10; ld1 Procedures: 20:15 I \T\ D: Incision and drainage was performed for an abscess of the right Prepped with [facility] Betadine, Anesthetized with 10 ml's 1% Lidocaine w/ Epi. Incised with #11 blade. I \T\ D: Drained moderate amount purulent fluid. serosanguinous fluid. Packed with iodoform gauze, Dressing: non-Adherent dressing, the patient tolerated the procedure well. MDM: 19:20 Patient medically screened. [facility] 20:12 Differential diagnosis: abscess, cellulitis. Data reviewed: vital signs, nurses notes. [facility] Data interpreted: school lunch monitor: rate is 88 beats/min, rhythm is regular, Pulse oximetry: on room air is 98 %. Counseling: I had a detailed discussion with the patient and/or guardian regarding: the historical points, exam findings, and any diagnostic results supporting the discharge/admit diagnosis, lab results, radiology results, the need for outpatient follow up, for definitive care, a family practitioner, a general surgeon. 03/30 20:02 Order name: Urine Dipstick-Ancillary; Complete Time: 20:47 EDMS 03/30 20:04 Order name: Urine --Ancillary (enter results); Complete Time: 20:47 mw2 03/30 20:33 Order name: Glucose, Ancillary Testing; Complete Time: 20:47 EDMS 03/30 19:41 Order name: Dressing - Wound; Complete Time: 20:03 [facility] 03/30 19:41 Order name: Gloves, Sterile; Complete Time: 20:03 [facility] 03/30 19:41 Order name: Setup Suture Tray; Complete Time: 20:03 [facility] 03/30 19:41 Order name: Blood Glucose Level; Complete Time: 20:22 [facility] 03/30 19:41 Order name: Urine Dipstick-Ancillary (obtain specimen); Complete Time: 20:03 [facility] 03/30 19:41 Order name: Urine Test (obtain specimen); Complete Time: 20:03 adria Administered Medications: 20:03 Drug: Bactrim (trimethoprim-sulfamethoxazole) (160 mg-800 mg (DS) 1 tablet Route: PO; ld1 20:49 Follow up: Response: No adverse reaction ld1 20:03 Drug: Doxycycline 100 mg Route: PO; ld1 20:48 Follow up: Response: No adverse reaction ld1 20:22 Drug: Lidocaine-Epinephrine -1%: (1:100,000) 10 ml {Note: by Ken Torres MD.} ld1 Volume: 20 ml; Route: Infiltration; 20:48 Drug: Drummond (HYDROcodone-acetaminophen) 10 mg-325 mg 1 tabs Route: PO; ld1 Disposition Summary: 03/30/21 20:48 Discharge Ordered Location: Home adria Problem: new adria Symptoms: have improved adria Condition: Stable adria Diagnosis - Cutaneous abscess of abdominal wall adria - Obesity, unspecified adria Followup: adria - With: Private Physician - When: 2 - 3 days - Reason: Recheck today's complaints, Continuance of care, Re-evaluation by your physician Followup: adria - With: - When: 2 - 3 days - Reason: Recheck today's complaints, Continuance of care, Re-evaluation by your physician Discharge Instructions: - Discharge Summary Sheet adria - Skin Abscess adria - Incision and Drainage adria - Obesity, Adult adria - Skin Abscess, [id number] adria Forms: - Medication Reconciliation Form adria - Thank You Letter adria - Antibiotic Education adria - Prescription Opioid Use adria Prescriptions: - Centany 2 % Topical ointment - apply 1 application by TOPICAL route 3 times per day for 10 days; 30 gram; adria Refills: 0, Product Selection Permitted - Doxycycline Hyclate 100 mg Oral Tablet - take 1 tablet by ORAL route every 12 hours; 20 tablet; Refills: 0, Product adria Selection Permitted - Bactrim DS 800-160 mg Oral Tablet - take 1 tablet by ORAL route every 12 hours for 10 days; 20 tablet; Refills: 0, adria Product Selection Permitted - Tylenol-Codeine #3 300 mg-30 mg Oral - take 2 tablet by ORAL route every 4-6 hours; 20 tablet; Refills: 0, Product adria Selection Permitted Signatures: Dispatcher [employer] Ken Thakkar MD MD cha Dibbern, Lauren, RN RN ld1 Gilberto Huynh RN RN da3
[2021-03-30 21:10] VITALS: BP 139/88; TEMP 97.8; O2SAT 98
== END 2021-03-30 20:54 | disposition home or self-care (01) ==
LOC: ER 18:21
PROC: 0J980ZZ Drainage of Abdomen Subcutaneous Tissue and Fascia, Open Approach (ICD-10-PCS; principal; 2021-03-30)
DX: L02.211 Cutaneous abscess of abdominal wall (principal); E66.9 Obesity, unspecified; I10 Essential (primary) hypertension
CPT/HCPCS: 81003; 81025; 82947; 99283

== ENCOUNTER 2022-03-27 17:20 | Inpatient (IN) | payer SELFPAY ==
--- OUTSIDE RECORDS SUMMARY | 2022-03-27 17:24 | XMS REPORT | Continuity of Care Document ---
:1970 Author Organization [facility] t Address [address] [place] [address] Care Team Providers Name Role Phone Unavailable Unavailable Unavailable Problems Condition Condition Condition Status Onset Resolution Last Treating Co mments Source Name Details Category Date Date Treatment Clinician Date Acute pain Acute pain Problem Active C ommon of right of right [facility] knee knee [facility] Right Right Problem Active Common sided sided [facility] sciatica sciatica - [facility] Other Other Problem Active Common chronic chronic [facility] pain pain [facility] Effusion Effusion Problem Active Commo n of right of right [facility] knee knee [facility] Allergies, Adverse Reactions, Alerts This patient has no known allergies or adverse reactions. Medications Ordered Filled Start Stop Current Ordering Indication Dosage Frequency Signature Comments Components Source Medication Medication Date Date Medication? Clinician (SIG) Name Name Pseudoeph-B Pseudoeph-B Yes Angel DIA 5 ML PO Common romphen-DM romphen-DM Kumar Q 4 TO 6 H Spirit PRN [facility] Lisinopril Lisinopril Yes Angel TK 1 T PO Common [place] QD [facility] PredniSONE PredniSONE Yes Angel TK 1 T PO Common Kumar BID FOR 3 Spirit DAYS THEN - [facility] TK 1 T PO [facility] Azithromyci Azithromyci Yes Angel not Common n n Kumar defined [facility] Meloxicam Meloxicam Yes Angel DIA 1 T PO Common Kumar QD [facility] Indomethaci Indomethaci Yes Angel DIA ONE C Common n ER n ER Kumar PO QD FOR [facility] 2 WEEKS - [facility] PRN P [facility] Procedures This patient has no known procedures. Encounters Start End Encounter Admission Attending Care Care Encounter Source Date/Time Date/Time Type Type Clinicians Facility Department ID 2017-12-27 2017-12-27 Outpatient Jaden Franco [id number] Common 14:00:00 14:00:00 [facility] 2017-12-12 2017-12-12 Outpatient Jaden Franco [id number] Common 13:30:00 13:30:00 t [facility] - [facility] 2017-11-01 2017-11-01 Outpatient Jaden Franco [id number] Common 17:02:00 17:02:00 t [facility] - [facility] 2017-11-01 2017-11-01 Outpatient Jaden Franco [id number] Common 08:30:00 08:30:00 t [facility] - [facility] Results This patient has no known results.
[2022-03-27 19:47] LABS: Absolute Lymphocytes (CBC) 1.6 K/uL (0.7-4.9); Hematocrit 36.5 % (36.0-45.0); Lymphocytes % 22.2 % (15.3-44.8); MCV 84.9 fL (80-100); RBC Red Blood Cell Count 4.29 M/uL (3.86-4.86)
--- NOTE | 2022-03-27 19:56 | RAD REPORT ---
EXAM DESCRIPTION: RAD - Chest Single View - 03/27/2022 7:48 pm CLINICAL HISTORY: CHEST PAIN COMPARISON: 10/26/2016 FINDINGS: Lines: None. Lungs: No evidence of edema or pneumonia. Pleural: No significant pleural effusions or pneumothorax. Cardiac: Similar size and configuration Mediastinum: Within normal limits. Bones: No acute fractures. Other: None IMPRESSION: No acute cardiopulmonary disease.
[2022-03-27 20:03] LABS: Magnesium 1.9 mg/dL (1.6-2.4); Potassium 4.1 mmol/L (3.5-5.1)
[2022-03-27 20:04] LABS: Urine Blood Negative (Negative); Urine Glucose Negative (Negative); Urine Protein Negative (Negative); Urine Specific Gravity 1.025 (1.005-1.030)
[2022-03-27 20:13] LABS: Urine Specific Gravity/Preg 1.025 (1.005-1.030)
[2022-03-27 20:23] LABS: Protime INR 0.98
--- NOTE | 2022-03-27 21:09 | RAD REPORT ---
EXAM DESCRIPTION: CT - Chest For Pe Angio - 03/27/2022 8:56 pm CLINICAL HISTORY: back pain COMPARISON: No prior chest CT TECHNIQUE: Dynamically enhanced axial 3 mm thick images of the chest were obtained during administra tion of <100> mL Isovue 370 IV contrast. Coronal and oblique reconstruction images were generated and reviewed. Exam utilizes a protocol for optimal evaluation of pulmonary arterial tree. Maximum intensity projections 3D imaging was utilized All CT scans are performed using dose optimization technique as appropriate and may include automated exposure control or mA/KV adjustment according to patient size. FINDINGS: Chest Wall: No suspicious thyroid nodules or pathologic lymphadenopathy. Lungs: Nonspecific mosaic lung attenuation. Pleura: No significant effusions or pneumothorax. Mediastinum/galina: No pathologic lymphadenopathy. Pulmonary arteries/Aorta: No filling defect identified. No aortic aneurysm. Heart: No significant pericardial effusion. Normal heart size. Upper abdomen: No acute abnormality.Hepatic steatosis. Cholecystectomy. Bones: No acute abnormality. IMPRESSION: Negative for pulmonary embolism. Mosaic lung attenuation which could indicate hypoventil ation or small airways disease.
--- NOTE | 2022-03-27 21:33 | RAD REPORT ---
EXAM DESCRIPTION: US - Extrem Venous W Compress Benny - 03/27/2022 9:23 pm CLINICAL HISTORY: SWELLING COMPARISON: None TECHNIQUE: Real-time sonographic evaluation of the lower extremity deep venous systems was performed using color Doppler, grayscale, and compression. FINDINGS: Bilateral lower extremities. Normal compressibility, flow augmentation, phasic flow and spontaneous flow is identified in both the left and right lower extremity deep venous systems. No intraluminal filling defects seen. IMPRESSION: No DVT in either lower extremity.
[2022-03-27] MEDS ORDERED: NA CHLORIDE 0.9% 500 ML ONE (21:38)
[2022-03-27] MEDS ORDERED: ASPIRIN 81 MG CHEWABLE TABLET ONE (21:38)
[2022-03-27] MEDS ORDERED: NITROGLYCERIN 0.4 MG/TAB SL ONE (21:38)
--- NOTE | 2022-03-27 21:49 | ER ---
Nurse's Notes [facility] Name: Rachelle Rice Age: 51 yrs Sex: Female : 1970 Arrival Date: 03/27/2022 Time: 17:21 Bed 4 Private MD: Diagnosis: Chest pain, unspecified Presentation: 03/27 18:42 Chief complaint: Patient states: fingers are discolored on both hands , started a week iw ago, also pain in her lungs, no cough pain in back of lungs no chest pain , no SOB. Coronavirus screen: Client presents with at least one sign or symptom that may indicate coronavirus-19. Ebola Screen: Patient negative for fever greater than or equal to 101.5 degrees Fahrenheit, and additional compatible Ebola Virus Disease symptoms Patient denies exposure to infectious person. Patient denies travel to an Ebola-affected area in the 21 days before illness onset. No symptoms or risks identified at this time. Initial Sepsis Screen: Does the patient meet any 2 criteria? No. Patient's initial sepsis screen is negative. Does the patient have a suspected source of infection? No. Patient's initial sepsis screen is negative. Risk Assessment: Do you want to hurt yourself or someone else? Patient reports no desire to harm self or others. Onset of symptoms was March 20, 2022. 18:42 Method Of Arrival: Ambulatory iw 18:42 Acuity: BENEDICTO 3 iw Historical: - Allergies: 18:43 No Known Allergies; iw - Home Meds: 03/28 00:03 gabapentin Oral [Active]; lisinopril Oral [Active]; kd3 - PMHx: 03/27 18:43 Hypertension; iw - Immunization history:: Adult Immunizations up to date. - Social history:: Smoking status: unknown. Screenin:32 Abuse screen: Denies threats or abuse. Denies injuries from another. Nutritional kd3 screening: No deficits noted. Tuberculosis screening: No symptoms or risk factors identified. Fall Risk None identified. IV access (20 points). Assessment: 19:31 General: Appears uncomfortable, Behavior is calm, cooperative. Pain: Complains of pain kd3 in diaphragm. Pain: Complains of pain in right hand and left hand. Neuro: Level of Consciousness is awake, alert, obeys commands, Oriented to person, place, time, situation. Cardiovascular: Capillary refill < 3 seconds in bilateral fingers. Cardiovascular: Rhythm is sinus rhythm. Respiratory: Airway is patent Trachea midline Respiratory effort is even, unlabored, Respiratory pattern is regular, symmetrical. 20:47 General: Appears uncomfortable, Behavior is calm, cooperative. Neuro: Level of kd3 Consciousness is awake, alert, obeys commands, Oriented to person, place, time, situation. Vital Signs: 18:42 BP 149 / 78; Pulse 81; Resp 16; Temp 98.1; Pulse Ox 98% on R/A; iw 19:39 BP 117 / 70; Pulse 77; Resp 19; Pulse Ox 99% on R/A; kd3 20:45 BP 133 / 64; Pulse 72; Resp 20; Pulse Ox 98% on R/A; kd3 22:06 BP 134 / 49; Pulse 73; Resp 16 S; Pulse Ox 98% on R/A; as6 23:30 BP 131 / 78; Pulse 76; Resp 18 S; Pulse Ox 94% on R/A; as6 12/11 00:00 BP 104 / 67; Pulse 72; Resp 18 S; Pulse Ox 94% on R/A; as6 ED Course: 03/27 17:21 Patient arrived in ED. am2 18:06 Ken Mckeon PA is PHCP. cp 18:06 Syed Ly MD is Attending Physician. cp 18:43 Triage completed. iw 18:44 Arm band placed on. iw 19:10 Maru Mohan, RN is Primary Nurse. kd3 19:32 Patient has correct armband on for positive identification. Bed in low position. kd3 19:32 No provider procedures requiring assistance completed. Inserted saline lock: 20 gauge kd3 in right antecubital area, using aseptic technique. Blood collected. 19:38 Basic Metabolic Panel Sent. kd3 19:38 CBC with Diff Sent. kd3 19:39 D-Dimer Sent. kd3 19:39 Magnesium Sent. kd3 19:39 NT PRO-BNP Sent. kd3 19:39 PT-INR Sent. kd3 19:39 Troponin HS Sent. kd3 19:45 Troponin HS Sent. kd3 19:45 PT-INR Sent. kd3 19:45 NT PRO-BNP Sent. kd3 19:45 Magnesium Sent. kd3 19:45 D-Dimer Sent. kd3 19:45 CBC with Diff Sent. kd3 19:45 Basic Metabolic Panel Sent. kd3 19:50 XRAY Chest (1 view) In Process Unspecified. EDMS 20:57 CT Chest For PE Angio In Process Unspecified. EDMS 21:25 US Extremity Venous W Compression Benny In Process Unspecified. EDMS 21:48 Jose Francisco Toro MD is Hospitalizing Provider. cp 21:54 SARS RAPID Sent. as6 03/28 00:01 Patient admitted, IV remains in place. as6 Administered Medications: 03/27 21:42 Drug: Aspirin Chewable Tablet 324 mg Route: PO; as6 23:31 Follow up: Response: No adverse reaction as6 21:43 Drug: Nitroglycerin 0.4 mg Route: Sublingual; as6 23:30 Follow up: Response: No adverse reaction as6 21:54 Drug: NS 0.9% 500 ml Route: IV; Rate: bolus; Site: right antecubital; as6 23:30 Follow up: Response: No adverse reaction; IV Status: Completed infusion; IV Intake: as6 500ml Medication: 19:31 VIS not applicable for this client. kd3 Intake: 23:30 IV: 500ml; Total: 500ml. as6 Outcome: 21:49 Decision to Hospitalize by Provider. cp 03/28 00:01 Condition: stable as6 Instructed on the need for admit. 00:03 Admitted to Med/surg room 403. kd3 00:17 Patient left the ED. as6 Signatures: Dispatcher [employer] Shawna Moreland RN RN iw Ken Mckeon PA PA cp Libia Ojeda am2 Júnior Chao RN RN as6 Maru Mohan RN RN kd3
--- NOTE | 2022-03-27 21:49 | EDPHYS ---
Physician Documentation [facility] Name: Rachelle Rice Age: 51 yrs Sex: Female : 1970 Arrival Date: 03/27/2022 Time: 17:21 Bed 4 Private MD: ED Physician Syed Ly HPI: 03/27 19:00 This 51 yrs old Female presents to ER via Ambulatory with complaints of High cp Blood Pressure, Hand Swelling - warmth/purple. 19:00 The patient or guardian reports chest pain that is located primarily in the described cp as pain in lungs. 19:00 Onset: 1 week(s) ago, intermittent. cp 19:00 Associated signs and symptoms: Pertinent positives: complaints of pain and swelling to cp hands and lower legs, patient reports that fingers look discolored. Historical: - Allergies: 18:43 No Known Allergies; iw - Home Meds: 03/28 00:03 gabapentin Oral [Active]; lisinopril Oral [Active]; kd3 - PMHx: 03/27 18:43 Hypertension; iw - Immunization history:: Adult Immunizations up to date. - Social history:: Smoking status: unknown. ROS: 19:05 Constitutional: Negative for body aches, chills, fever, poor PO intake. cp 19:05 Eyes: Negative for injury, pain, redness, and discharge. cp 19:05 ENT: Negative for drainage from ear(s), ear pain, sore throat, difficulty swallowing, difficulty handling secretions. 19:05 Cardiovascular: Positive for chest pain, edema, Negative for palpitations. 19:05 Respiratory: Negative for cough, shortness of breath, wheezing. 19:05 Abdomen/GI: Negative for abdominal pain, vomiting, diarrhea, constipation. 19:05 Back: Positive for pain at rest, pain with movement, of the left scapular area, right scapular area, left subscapular area and right subscapular area. 19:05 : Negative for urinary symptoms. 19:05 Skin: Negative for rash. 19:05 Neuro: Negative for altered mental status, dizziness, headache, numbness, weakness. 19:05 All other systems are negative. Exam: 19:10 Constitutional: The patient appears in no acute distress, alert, awake, cp non-diaphoretic, non-toxic, well developed, well nourished, obese. 19:10 Head/Face: Normocephalic, atraumatic. cp 19:10 Eyes: Periorbital structures: appear normal, Conjunctiva: normal, no exudate, no injection, Sclera: no appreciated abnormality, Lids and lashes: appear normal, bilaterally. 19:10 ENT: External ear(s): are unremarkable, Nose: is normal, Mouth: Lips: moist, Oral mucosa: moist, Posterior pharynx: Airway: no evidence of obstruction, patent. 19:10 Neck: ROM/movement: is normal, is supple, without pain, no range of motions limitations. 19:10 Chest/axilla: Inspection: normal. 19:10 Cardiovascular: Rate: normal, Rhythm: regular, Edema: ankle edema, that is very mild, JVD: is not appreciated. 19:10 Respiratory: the patient does not display signs of respiratory distress, Respirations: normal, no use of accessory muscles, no retractions, labored breathing, is not present, Breath sounds: are clear throughout, no decreased breath sounds, no stridor, no wheezing. 19:10 Abdomen/GI: Inspection: obese Palpation: abdomen is soft and non-tender, in all quadrants. 19:10 Back: pain, that is mild, of the left scapular area, right scapular area, left subscapular area and right subscapular area, ROM is normal. 19:10 Neuro: Orientation: to person, place \T\ time. Mentation: is normal, Cerebellar function: is grossly normal, Motor: moves all fours, strength is normal, Sensation: is normal. 19:27 ECG was reviewed by the Attending Physician. cp 21:45 ECG was reviewed by the Attending Physician. cp Vital Signs: 18:42 BP 149 / 78; Pulse 81; Resp 16; Temp 98.1; Pulse Ox 98% on R/A; iw 19:39 BP 117 / 70; Pulse 77; Resp 19; Pulse Ox 99% on R/A; kd3 20:45 BP 133 / 64; Pulse 72; Resp 20; Pulse Ox 98% on R/A; kd3 22:06 BP 134 / 49; Pulse 73; Resp 16 S; Pulse Ox 98% on R/A; as6 23:30 BP 131 / 78; Pulse 76; Resp 18 S; Pulse Ox 94% on R/A; as6 12/11 00:00 BP 104 / 67; Pulse 72; Resp 18 S; Pulse Ox 94% on R/A; as6 MDM: 03/27 19:00 Differential diagnosis: abnormal EKG, acute myocardial infarction, acute pericarditis, cp pericarditis, pneumonia, pneumothorax, pulmonary embolus, stable angina, thoracic aortic disection, unstable angina. 19:11 Patient medically screened. 21:45 Data reviewed: vital signs, nurses notes, lab test result(s), EKG, radiologic studies, cp CT scan, plain films, ultrasound. 21:45 Physician consultation: Jose Francisco Toro MD was contacted at 21:45, regarding admission, cp to the telemetry unit. patient's condition, discussed elevated troponin and EKG negative for ST changes. Will admit for continued observation. 21:45 The patient was given aspirin in the Emergency Department. 03/27 18:54 Order name: Basic Metabolic Panel; Complete Time: 20:35 cp 03/27 18:54 Order name: CBC with Diff; Complete Time: 20:35 cp 03/27 20:36 Interpretation: MPV 7.0; EOSINOPHIL % 4.7; Reviewed. 03/27 18:54 Order name: D-Dimer; Complete Time: 20:35 cp 03/27 20:36 Interpretation: Abnormal: D-DIMER 2325. cp 03/27 18:54 Order name: Magnesium; Complete Time: 20:35 cp 03/27 18:54 Order name: NT PRO-BNP; Complete Time: 20:35 cp 03/27 21:27 Interpretation: Reviewed. cp 03/27 18:54 Order name: PT-INR; Complete Time: 20:35 cp 03/27 18:54 Order name: Troponin HS; Complete Time: 20:35 cp 03/27 20:04 Order name: Urine Dipstick-Ancillary; Complete Time: 20:35 EDMS 03/27 20:08 Order name: Urine --Ancillary (enter results); Complete Time: 20:35 mw2 03/27 21:32 Order name: SARS RAPID cp 03/27 22:19 Order name: CBC with Automated Diff EDMS 03/27 22:19 Order name: CBC with Automated Diff EDMS 03/27 22:19 Order name: Comprehensive Metabolic Panel EDMS 03/27 22:19 Order name: Comprehensive Metabolic Panel EDMS 03/27 18:54 Order name: XRAY Chest (1 view); Complete Time: 20:35 cp 03/27 18:54 Order name: EKG; Complete Time: 18:55 cp 03/27 18:54 Order name: Cardiac monitoring; Complete Time: 19:38 cp 03/27 18:54 Order name: EKG - Nurse/Tech; Complete Time: 19:31 cp 03/27 20:37 Order name: CT Chest For PE Angio; Complete Time: 21:19 cp 03/27 20:37 Order name: US Extremity Venous W Compression Benny; Complete Time: 21:35 cp 03/27 21:36 Interpretation: Report reviewed. 03/27 22:19 Order name: Heart Healthy [facility] 03/27 22:19 Order name: Lipid Profile [facility] 03/27 22:19 Order name: Lipid Profile [facility] 03/27 22:19 Order name: Magnesium [facility] 03/27 22:19 Order name: Magnesium [facility] 03/27 23:17 Order name: Creatine Phosphokinase [facility] 03/27 23:17 Order name: CKMB Creatine Kinase MB [facility] 03/27 18:54 Order name: IV Saline Lock; Complete Time: 19:31 cp 03/27 18:54 Order name: Labs collected and sent; Complete Time: 19:31 cp 03/27 18:54 Order name: O2 Per Protocol; Complete Time: 19:31 cp 03/27 18:54 Order name: O2 Sat Monitoring; Complete Time: 19:31 cp 03/27 18:56 Order name: Urine Dipstick-Ancillary (obtain specimen); Complete Time: 20:04 cp 03/27 18:56 Order name: Urine Test (obtain specimen); Complete Time: 20:04 cp EC:27 Rate is 78 beats/min. Rhythm is regular. MT interval is normal. QRS interval is normal. cp QT interval is normal. T waves are Inverted in lead aVR. Interpreted by me. Reviewed by me. 21:45 Rate is 64 beats/min. Rhythm is regular. MT interval is normal. QRS interval is normal. cp QT interval is normal. T waves are Inverted in lead aVR. Interpreted by me. Reviewed by me. Administered Medications: 21:42 Drug: Aspirin Chewable Tablet 324 mg Route: PO; as6 23:31 Follow up: Response: No adverse reaction as6 21:43 Drug: Nitroglycerin 0.4 mg Route: Sublingual; as6 23:30 Follow up: Response: No adverse reaction as6 21:54 Drug: NS 0.9% 500 ml Route: IV; Rate: bolus; Site: right antecubital; as 23:30 Follow up: Response: No adverse reaction; IV Status: Completed infusion; IV Intake: as6 500ml Disposition Summary: 03/27/22 21:49 Hospitalization Ordered Hospitalization Status: Inpatient Admission cp Provider: Jose Francisco Toro cp Location: Telemetry/[facility] (Inpatient) cp Condition: Stable cp Problem: new cp Symptoms: have improved cp Bed/Room Type: Standard cp Room Assignment: 403(03/27/22 23:51) rv1 Diagnosis - Chest pain, unspecified cp Forms: - Medication Reconciliation Form cp - SBAR form cp Addendum: 04/02/2022 17:09 Co-signature as Attending Physician, Syed Ly MD I agree with the assessment and r t plan of care. Signatures: Dispatcher [employer] Shawna Moreland RN RN iw Ken Mckeon PA PA cp Júnior Chao RN RN as6 Maru Mohan RN RN kd3 Syed Ly MD MD rt Maria Luz Lacey rv1 Corrections: (The following items were deleted from the chart) 03/27 23:51 21:49 cp rv1
[2022-03-27] MEDS ORDERED: ACETAMINOPHEN 325 MG TABLET PO PRN (22:13)
[2022-03-27] MEDS ORDERED: ONDANSETRON 4 MG/2 ML VIAL IV PRN (22:13)
--- NOTE | 2022-03-27 22:23 | P.HP ---
Certification for Inpatient Patient admitted to: Observation With expected LOS: <2 Midnights Practitioner: I am a practitioner with admitting privileges, knowledge of patient current condition, hospital course, and medical plan of care. Services: Services provided to patient in accordance with Admission requirements found in Title 42 Section 412.3 of the Code of Federal Regulations Patient History Date of Service: 03/28/22 Reason for admission: Chest pain. History of Present Illness: 51-year-old female patient with medical history significant for psoriasis who was evaluated in the emergency room for episode of chest pain. Chest pain is said to be located centrally radiating to the back. She denies of an episode of nausea vomiting, fever, chills, cough, shortness of breath. She does have significant rash in the body and tenderness in the fingers. Imaging study done to rule out thoracic aneurysm was negative. She was asked to be admitted for chest pain work-up and ACS rule out. Other notable labs include elevated D- dimer of greater than 2000 however CTA to rule out pulmonary embolism was negative and DVT screen was negative. Allergies No Known Allergies Allergy (Unverified 10/26/16 07:43) Home Medications: Acetaminophen [Tylenol Extra Strength] 1,000 mg PO Q4HP PRN 03/28/22 Lisinopril [Zestril] 20 mg PO DAILY 03/28/22 Naproxen Sodium [Flanax] 220 mg PO BIDP PRN 03/28/22 - Past Medical/Surgical History Diabetic: No -: ovarian tumor -: ovarian tumor removal - Social History Alcohol use: No CD- Drugs: No Caffeine use: Yes Review of Systems General: Unremarkable Eyes: Unremarkable ENT: Unremarkable Respiratory: Unremarkable Cardiovascular: Chest Pain Gastrointestinal: Unremarkable Genitourinary: Unremarkable Musculoskeletal: Unremarkable Integumentary: Rash Neurological: Unremarkable Physical Examination - Physical Exam General: Alert, Oriented x3 HEENT: Atraumatic, Normocephalic Neck: Supple Respiratory: Normal air movement Cardiovascular: Normal pulses, Regular rate/rhythm Gastrointestinal: Soft and benign Musculoskeletal: No swelling Integumentary: Rash(es) Neurological: Normal speech, Normal strength at 5/5 x4 extr - Studies Laboratory Data (last 24 hrs) 03/27/22 19:36: PT 10.8, INR 0.98 03/27/22 19:36: WBC 7.30, Hgb 12.1, Hct 36.5, Plt Count 366 12/10/22 19:36: Sodium 138, Potassium 4.1, BUN 17, Creatinine 0.70, Glucose 102, Magnesium 1.9 Assessment and Plan - Plan Chest pain: Episode of pain is concerning for ACS. DVT and PE has been ruled out. Will trend cardiac markers and have patient on aspirin. Will have morphine on board for pain control. Will obtain echocardiogram to assess cardiac function. we will obtain lipid panel. Cardiology to be consulted based on abnormal findings on work up. Psoriasis: Lesions noted all over the body. Will give empiric therapy with steroid and follow symptoms. Prophylaxis: Lovenox for DVT prophylaxis Code status: Full code Disposition: We will work-up chest pain. - Advance Directives Does patient have a Living Will: No Does patient have a Durable POA for Healthcare: No
[2022-03-27 22:48] LABS: SARS-CoV-2 Antigen Rapid Res Negative (Negative)
[2022-03-27 23:17] LABS: CKMB Creatine Kinase MB 1.1 ng/mL (1.0-3.6)
[2022-03-28] MEDS: MORPHINE 2 MG/ML SYR IV PRN (00:59)
[2022-03-28 01:36] VITALS: BMI 52.4
[2022-03-28] MEDS: TRAMADOL HCL 50 MG TAB PO PRN ×2 (03:57→15:36)
[2022-03-28 07:51] LABS: Absolute Lymphocytes (CBC) 1.7 K/uL (0.7-4.9); Hematocrit 34.2 % (36.0-45.0); Lymphocytes % 26.6 % (15.3-44.8); MCV 85.3 fL (80-100); MPV 7.3 fL (7.6-11.3); RBC Red Blood Cell Count 4.01 M/uL (3.86-4.86)
[2022-03-28 08:13] LABS: Albumin 3.1 g/dL (3.4-5.0); Bilirubin Total 0.3 mg/dL (0.2-1.0); Magnesium 1.8 mg/dL (1.6-2.4); Potassium 3.9 mmol/L (3.5-5.1); Protein, Total 7.2 g/dL (6.4-8.2)
[2022-03-28 08:15] LABS: CKMB Creatine Kinase MB 1.7 ng/mL (1.0-3.6)
[2022-03-28] MEDS ORDERED: POTASSIUM CL SA 10 MEQ TAB PO ONE (08:17)
[2022-03-28] MEDS ORDERED: MAGNESIUM SULFATE 1 gm IVPB 1 GM/100 ML BAG IV ONE (08:17)
[2022-03-28] MEDS: ENOXAPARIN 40 MG/0.4 ML SQ SCH (08:39)
[2022-03-28] MEDS ORDERED: ASPIRIN 81 MG CHEWABLE TABLET PO SCH (09:00)
[2022-03-28] MEDS ORDERED: METHYLPREDNISOLONE 40 MG INJ IV SCH (09:00)
--- NOTE | 2022-03-28 13:50 | P.PN ---
Subjective Date of Service: 03/28/22 Chief Complaint: Chest pain. Ms. Rachelle Meng is Zambian-speaking only. The following history was obtained with the assistance of [place]ian-Irish book repairer. No acute events overnight. She reports that her chest pain is still present, but is less severe than it was on presentation. She denies any shortness of breath, palpitations, or abdominal pain. Review of Systems 10-point ROS is otherwise unremarkable Cardiovascular: Chest Pain Physical Examination - Vital Signs Temperature: 97.4 F Blood Pressure: 127/72 Pulse: 67 Respirations: 16 Pulse Ox (%): 96 - Physical Exam General: Alert, In no apparent distress, Oriented x3 HEENT: Normocephalic, Mucous membr. moist/pink, Sclerae nonicteric Neck: JVD not distended Respiratory: Clear to auscultation bilaterally, Normal air movement Cardiovascular: No edema, Regular rate/rhythm, Normal S1 S2, No gallops, No rubs, No murmurs Gastrointestinal: Soft and benign, Non-distended Musculoskeletal: No clubbing Integumentary: No rashes Neurological: Normal speech, Cranial nerves 3-12 intact, Normal affect - Studies Laboratory Data (last 24 hrs) 03/27/22 19:36: PT 10.8, INR 0.98 03/27/22 19:36: WBC 7.30, Hgb 12.1, Hct 36.5, Plt Count 366 03/27/22 19:36: Sodium 138, Potassium 4.1, BUN 17, Creatinine 0.70, Glucose 102, Magnesium 1.9 Assessment And Plan - Plan # Chest Pain, concern for Non-ST Segment Elevation Myocardial Infarction - Evaluation thus far: - EKG: no reported STEMI criteria, trend - Serial troponin: 92.0 -> 89.9 -> 93.1 - Ordered transthoracic echocardiogram - Chest x-ray = "no acute cardiopulmonary disease." - D-dimer = 2325 - Bilateral lower extremity Doppler = " no DVT in either lower extremity." - CT chest angiogram = "negative for pulmonary embolism. Mosaic lung attenuation which could indicate hypoventilation or small airways disease." - Management plan: - Consult Cardiology (Dr. Maloney) - recommendations appreciated - S/P aspirin 324 mg PO x 1 in ED - Start daily baby aspirin + atorvastatin - Continue home lisinopril - Consider beta-alina if blood pressure allows # Psoriasis - Resume home medications once verified Mono Johnson M.D.
--- NOTE | 2022-03-28 15:10 | CON ---
Date of Consultation: 03/28/2022 Reason For Consultation: Chest pain. History Of Present Illness: A 51-year-old female, history of psoriasis, hypertension, presented with chest pain, retrosternal, no radiation. No diaphoresis. No nausea. No vomiting. Pain woke her up and severe in nature and now it has resolved. Past Medical History: As outlined above in the HPI. Medications: Refer to reconciliation sheet for detailed list. Allergies: NO KNOWN DRUG ALLERGIES. Family History: No premature coronary artery disease or cancer. Social History: She does not smoke or drink. Does not use any drugs. Review of Systems: All systems reviewed and they were negative except what mentioned in HPI. Physical Examination: Vital Signs: Reviewed. Head and Neck: Pupils are equal, reactive to light. Intact eye movements. No JVD. No cervical lym phadenopathy. Neck is supple. Thyroid is not enlarged. She is a morbidly obese patient. Lungs: Clear to auscultation bilaterally. No rhonchi, wheezing, or crackles. No accessory muscle u se. Heart: Regular rate and rhythm. No extra sounds. Abdomen: Soft, nontender. Bowel sounds positive. No organomegaly. No masses or hernia. No rigidi ty or rebound. Extremities: No clubbing or cyanosis. Intact pulses. Skin: She has psoriasis all over. Neurologic: Alert, awake, oriented x3. No acute focal deficits appreciated. Investigations: Troponin is 93. BUN is 18, creatinine 0.52, and hemoglobin is 11.3. Assessment And Recommendations: 1.Chest pain, borderline elevated troponin. Definitely a coronary artery disease is possibility. P scar for exercise nuclear stress test tomorrow as well as echocardiogram and proceed with invasive bobbi ting if the stress test is abnormal. She had a CTA of the lungs that was negative for pulmonary embo lism. 2.Hypertension. Blood pressure is controlled. SR/MODL Voice ID: [id number] Report ID: [id number]
[2022-03-28 15:39] LABS: CKMB Creatine Kinase MB 1.8 ng/mL (1.0-3.6)
[2022-03-28] MEDS: ATORVASTATIN 40 MG TAB PO SCH (20:36)
[2022-03-29] MEDS: lisinopriL 20 MG TAB PO SCH (10:05)
[2022-03-29] MEDS: ASPIRIN 81 MG CHEWABLE TABLET PO SCH (10:05)
[2022-03-29] MEDS: ENOXAPARIN 40 MG/0.4 ML SQ SCH (11:34)
--- NOTE | 2022-03-29 13:46 | P.PN ---
Subjective Date of Service: 03/29/22 Subjective: No new changes, No C/O voiced, Improving Review of Systems 10-point ROS is otherwise unremarkable Physical Examination - Vital Signs Temperature: 97.6 F Blood Pressure: 129/59 Pulse: 76 Respirations: 18 Pulse Ox (%): 93 - Physical Exam General: Alert, In no apparent distress HEENT: Atraumatic, PERRLA, EOMI Neck: Supple, JVD not distended Respiratory: Clear to auscultation bilaterally, Normal air movement Cardiovascular: Regular rate/rhythm, Normal S1 S2 Gastrointestinal: Normal bowel sounds, No tenderness Musculoskeletal: No tenderness Integumentary: No rashes Neurological: Normal speech, Normal tone, Normal affect Lymphatics: No axilla or inguinal lymphadenopathy - Studies Medications List Reviewed: Yes Assessment & Plan - Problems (Diagnosis) (1) Hypertensive emergency Current Visit: Yes Status: Acute (2) Chest pain, rule out acute myocardial infarction Current Visit: Yes Status: Acute - Plan Plan: 1. Patient was scheduled for stress test but unable to get pictures because of her size. Scheduled for cardiac catheterization in the morning. 2. Cardiology consultation 3. Echocardiogram and cath in AM 4. Lipid profile - Advance Directives Does patient have a Living Will: No Does patient have a Durable POA for Healthcare: No
--- NOTE | 2022-03-29 14:59 | EKG ---
Test Date: 2022-03-27 Test Time: 21:39:42 Rip Sawyer: ROZINA MEASUREMENT RESULTS: Intervals: Rate: 64 IL: 158 QRSD: 88 QT: 372 QTc: 383 [place]: P: 34 IL: 158 QRS: 55 T: 55 INTERPRETIVE STATEMENTS: Normal sinus rhythm Normal ECG Compared to ECG 10/26/2016 05:34:05 No significant changes Electronically Signed On 03-29-22 14:55:54 ELECTRIC METER TECHNICIAN by Carmelo Maloney
--- NOTE | 2022-03-29 15:00 | EKG ---
Test Date: 2022-03-27 Test Time: 19:21:05 Human Resources Leader: SUSANA MEASUREMENT RESULTS: Intervals: Rate: 78 IN: 148 QRSD: 88 QT: 372 QTc: 424 [place]: P: 29 IN: 148 QRS: 34 T: 54 INTERPRETIVE STATEMENTS: Normal sinus rhythm Normal ECG Compared to ECG 10/26/2016 05:34:05 No significant changes Electronically Signed On 03-29-22 14:56:07 GOODYEAR STITCHER by Carmelo Maloney
[2022-03-29] MEDS: MORPHINE 2 MG/ML SYR IV PRN (20:17)
[2022-03-29] MEDS: ATORVASTATIN 40 MG TAB PO SCH (20:18)
[2022-03-30 04:42] LABS: Magnesium 1.9 mg/dL (1.6-2.4); Potassium 3.9 mmol/L (3.5-5.1)
--- NOTE | 2022-03-30 06:51 | ECHO ---
HEIGHT: 5 ft 3 in WEIGHT: 296 lb 0 oz DATE OF STUDY: 03/29/[address]: Jose Francisco Toro MD 2-DIMENSIONAL: YES M.MODE: YES DOPPLER: YES COLOR FLOW: YES TDS: YES PORTABLE: DEFINITY: BUBBLE STUDY: DIAGNOSIS: CHEST PAIN CARDIAC HISTORY: CATHERIZATION: SURGERY: PROSTHETIC VALVE: PACEMAKER: MEASUREMENTS (cm) DIASTOLIC (NORMALS) SYSTOLIC (NORMALS) IVSd 1.3 (0.6-1.2) LA Diam 3.4 (1.9-4.0) LVEF 69% LVIDd 4.2 (3.5-5.7) LVIDs 2.6 (2.0-3.5) %FS 38% LVPWd 1.4 (0.6-1.2) Ao Diam 2.6 (2.0-3.7) 2 DIMENSIONAL ASSESSMENT: RIGHT ATRIUM: NORMAL LEFT ATRIUM: NORMAL RIGHT VENTRICLE: NORMAL LEFT VENTRICLE: MILD LEFT VENTRICULAR HYPERTROPHY TRICUSPID VALVE: NORMAL MITRAL VALVE: NORMAL PULMONIC VALVE: NORMAL AORTIC VALVE: NORMAL PERICARDIAL EFFUSION: NONE AORTIC ROOT: NORMAL LEFT VENTRICULAR WALL MOTION: NORMAL DOPPLER/COLOR FLOW: NORMAL COMMENTS: 1. NORMAL LEFT VENTRICULAR EJECTION FRACTION 60-65% 2. NORMAL WALL MOTION 3. MILD CONCENTRIC LEFT VENTRICULAR HYPERTROPHY 4. NORMAL DIASTOLIC DYSFUNCTION TECHNOLOGIST: NERY ESCALONA
[2022-03-30] MEDS: ASPIRIN 81 MG CHEWABLE TABLET PO SCH (08:39)
[2022-03-30] MEDS: lisinopriL 20 MG TAB PO SCH (08:44)
[2022-03-30] MEDS: ENOXAPARIN 40 MG/0.4 ML SQ SCH (08:45)
[2022-03-30 12:20] VITALS: TEMP 98.9
[2022-03-30] MEDS ORDERED: HEPA 1000U/500MLS 1,000 UNIT/500 ML BAG IV ONE (14:29)
[2022-03-30] MEDS ORDERED: LIDOCAINE 1% 20 ML MDV ONE (14:29)
[2022-03-30] MEDS ORDERED: NITROGLYCERIN 100 MCG/ML SYR (for cath lab use only) IV ONE (14:30)
[2022-03-30] MEDS ORDERED: HEPARIN 10,000 UNIT/10 ML VIAL IV ONE (14:30)
[2022-03-30] MEDS ORDERED: HEPARIN 5000 UNIT/ML 1 ML VIAL ONE (14:30)
[2022-03-30] MEDS ORDERED: VERAPAMIL HCL 10 MG/4 ML VIAL IV ONE (14:30)
[2022-03-30] MEDS ORDERED: ATROPINE SULF 1 MG/10 ML SYR IV ONE (14:31)
[2022-03-30] MEDS ORDERED: FENTANYL CITR 100 MCG/2 ML ONE ×2 (14:31→16:46)
[2022-03-30] MEDS ORDERED: NA CHLORIDE 0.9% 500 ML ONE (14:32)
[2022-03-30] MEDS ORDERED: MIDAZOLAM HCL 2 MG/2 ML INJ ONE (14:32)
[2022-03-30] MEDS ORDERED: ACETAMINOPHEN 325 MG TABLET ONE (15:54)
[2022-03-30 17:12] VITALS: BP 109/62; O2SAT 95
--- NOTE | 2022-03-30 22:48 | OP ---
Date of Procedure: 03/30/2022 Surgeon: JIGNESH BOLAÑOS Procedure Performed: Selective coronary angiogram. Indication: Non-ST elevation myocardial infarction. Access: Right radial artery 6-[place] closed with TR band. Complications: None. Estimated Blood Loss: Less than 10 mL. Procedure In Detail: After risks, benefits, and alternatives were explained, the patient agreed to t he procedure and signed informed consent. [facility] and prepped and draped in usual sterile fashion. Then I accessed right radial artery using pedia tric micropuncture kit, placed a 6-[place] Slender sheath and took 5-[place] Morrow 4 catheter into aort ic root, engaged the left main and then the right coronary artery, took standard views and then remov ed the catheter and sheath, and placed TR band with good hemostasis. Findings: 1.Left main artery: Normal. 2.LAD: Large and normal. Normal diagonal branches. 3.Left circumflex is very large and normal. Normal OM branches. 4.RCA: Large, dominant and normal. Conclusion: Normal coronary arteries. Plan: Medical management. /JEFFL Voice ID: [id number] Report ID: [id number]
== END 2022-03-30 18:57 | disposition home or self-care (01) | DRG 287 ==
LOC: ER 17:20 → ERHOLD 22:20 → 4TH 23:56 → 2ND 03-28 02:26 → OBSVTOIN 03-28 20:27
PROVIDERS: ADMIT Internal Medicine Nephrology; ATTEND Hospitalist
PROC: 4A023N7 Measurement of Cardiac Sampling and Pressure, Left Heart, Percutaneous Approach (ICD-10-PCS; principal; 2022-03-30)
PROC: B2111ZZ Fluoroscopy of Multiple Coronary Arteries using Low Osmolar Contrast (ICD-10-PCS; 2022-03-30)
DX: R07.9 Chest pain, unspecified (principal); I16.1 Hypertensive emergency; I10 Essential (primary) hypertension; L40.9 Psoriasis, unspecified; Z79.899 Other long term (current) drug therapy; Z20.822 Contact with and (suspected) exposure to COVID-19
CPT/HCPCS: 36415; 71045; 71275; 76937; 80048; 80053; 80061; 81003; 81025; 82550; 82553; 83735; 83880; 84484; 85025; 85379; 85610; 87811; 93005; 93306; 93454; 93970; 96360; 96361; 99285; C1893; G0378; J0461; J1644; J1650; J2250; J2270; J2920; J3010; J3475; J7040; Q9966; Q9967

== ENCOUNTER 2023-08-19 09:37 | Emergency (ER) | payer SELFPAY ==
[2023-08-19 11:24] LABS: Absolute Basophils 0.1 K/uL (0-0.5); Absolute Eosinophils 0.1 K/uL (0-0.5); Absolute Lymphocytes (CBC) 2.6 K/uL (0.7-4.9); Absolute Monocytes 0.5 K/uL (0.1-1.3); Basophils % 0.9 % (0-1.3); Eosinophils % 1.6 % (0-4.4); Hematocrit 37.9 % (36.0-45.0); Hemoglobin 12.4 g/dL (12.0-15.0); Lymphocytes % 35.8 % (15.3-44.8); MCH 28.8 pg (27.0-35.0); MCHC 32.8 g/dL (32.0-36.0); MCV 87.7 fL (80-100); MPV 7.5 fL (7.6-11.3); Monocytes % 6.7 % (3.3-12.3); Platelets 320 thou/uL (152-406); RBC Red Blood Cell Count 4.32 M/uL (3.86-4.86); Red Cell Distribution Width 15.6 % (12.1-15.2)
[2023-08-19 11:44] LABS: Albumin 3.5 g/dL (3.4-5.0); Albumin/Globulin Ratio 0.8 (1.1-1.8); Anion Gap 7.7 mEq/L (5.0-15.0); Bilirubin Total 0.3 mg/dL (0.2-1.0); Globulin 4.2 g/dL (2.3-3.5); Potassium 3.7 mEq/L (3.5-5.1); Protein, Total 7.7 g/dL (6.4-8.2)
[2023-08-19 11:58] LABS: Specific Gravity 1.011 (1.005-1.030); Urine Bacteria <20 /HPF (<20); Urine Bilirubin NEGATIVE (Negative); Urine Blood Negative (Negative); Urine Clarity Turbid (Clear); Urine Color Light-Yellow (Yellow); Urine Culture Reflex Order NOT NEEDED; Urine Glucose NEGATIVE (Negative); Urine Ketones NEGATIVE (Negative); Urine Microscopic Reflex YN ORDER UMIC; Urine Mucus Slight /HPF (None Seen); Urine Nitrite NEGATIVE (Negative); Urine Protein NEGATIVE (Negative); Urine RBC <5 /HPF (None Seen); Urine Urobilinogen Normal (Normal); Urine WBC <5 /HPF (<5); Urine pH 6.5 (5.0-7.0)
--- NOTE | 2023-08-19 12:45 | RAD REPORT ---
EXAM DESCRIPTION: CTAbdomen Pelvis W Contrast - 08/19/2023 12:20 pm CLINICAL HISTORY: ABD PAIN COMPARISON: Abdomen Pelvis W Contrast dated 10/26/2016; Stone Protocol dated 05/14/2018 TECHNIQUE: CT of the abdomen and pelvis was performed. All CT scans are performed using dose optimization technique as appropriate and may include automated exposure control or mA/KV adjustment according to patient size. FINDINGS: Lower chest: No acute abnormality. Liver: No acute abnormality or suspicious lesions. Hepatic steatosis. Biliary: Cholecystectomy. Mild extrahepatic biliary duct dilatation is likely related to postcholecys tectomy state. Stomach: No significant focal abnormality. Duodenum: No significant focal abnormality. Pancreas: No significant abnormality. Spleen: No significant abnormality. Adrenal: No suspicious lesions. Kidney/ureter: No hydronephrosis. No renal calculi. 3.2 cm right lower pole renal mass. This is predo minantly endophytic. Retroperitoneum: No retroperitoneal adenopathy. Vascular: No aneurysm. Bowel: No significant focal abnormality. Peritoneum: No ascites or free air. Bladder: Grossly unremarkable. Reproductive: No adnexal masses. Bones: No acute fracture. Multilevel degenerative changes are present in the spine. Other: n/a IMPRESSION: New right lower pole renal mass measuring approximately 3.2 cm is concerning for neoplas m. Recommend urologic referral. No acute findings identified.
[2023-08-20 14:45] VITALS: BP 135/84; TEMP 98.4; O2SAT 95
== END 2023-08-19 14:19 | disposition home or self-care (01) ==
LOC: ER 09:37
DX: D49.511 Neoplasm of unspecified behavior of right kidney (principal)
CPT/HCPCS: 36415; 74177; 80053; 81001; 83690; 85025; 96374; 99285; Q9967